=== PATIENT | male | born 1965 | race Caucasian/White ===

== ENCOUNTER → 2017-07-06 | Outpatient (CLI) | payer MEDICARE, MEDICAID ==
[~2017-07-06] MED LIST: ABILIFY5 MG PO; BENICAR40 MG PO; BIOTENE MOIST44.3 ML PO; CELEXA40 MG PO; COZAAR 25MG25 MG/TAB PO; DESYREL 100MG100 MG PO; DILAUDID 2MG TAB2 MG PO; DITROPAN 5MG TAB5 MG PO; FLEXERIL 1010 MG/TAB PO; K-DUR 10 MEQ T10 MEQ PO; LASIX 40MG TABL40 MG PO; LEVAQUIN 5500 MG/TA1 PO; LIORESAL 1010 MG/TAB PO; LIORESAL20 MG; LIORESAL20 MG PO; MEDROL 4MG DOSPA4 MG PO; METOPROLOL50 MG PO; NEURONTIN300 MG/CAP PO; NEURONTIN600 MG/TAB PO; NORCO 325 MG-101 TAB; NORCO 325 MG-101 TAB PO; OXYBUTYNIN5 MG PO; POTASSIUM20 MEQ PO; PRILOSEC 20MG20 MG PO; PRILOTC; REMERON 15M15 MG/TA1 PO; SERTRALINE100 MG PO; TOPAMAX25 M1 PO; TOPAMAX50 MG PO; TOPROL XL100 MG PO; VALIUM 5MG T5 MG/TAB PO; ZOFRAN4 MG PO; ZOLOFT 50MG50 MG PO; ZOLOFT100 MG PO; baclofen pump
== END ==
LOC: WCC 08:40
DX: L97.919 Non-pressure chronic ulcer of unspecified part of right lower leg with unspecified severity (principal); L97.829 Non-pressure chronic ulcer of other part of left lower leg with unspecified severity; I87.2 Venous insufficiency (chronic) (peripheral); I89.0 Lymphedema, not elsewhere classified
CPT/HCPCS: 13919; 18867; 27510; A6197; A6209; G0463

== ENCOUNTER → 2017-07-22 | Outpatient (CLI) | payer MEDICARE | LOC: ZCOL.LAB 15:51 | DX: I83.009 Varicose veins of unspecified lower extremity with ulcer of unspecified site (principal) ==

== ENCOUNTER → 2017-07-22 | Outpatient (CLI) | payer MEDICARE, MEDICAID | LOC: WCC 07-18 09:42 | DX: L97.829 Non-pressure chronic ulcer of other part of left lower leg with unspecified severity (principal); L97.819 Non-pressure chronic ulcer of other part of right lower leg with unspecified severity; I87.2 Venous insufficiency (chronic) (peripheral) | CPT/HCPCS: 13919; G0463 ==

== ENCOUNTER → 2017-07-29 | Outpatient (CLI) | payer MEDICARE | LOC: WCC 08:31 | DX: L97.829 Non-pressure chronic ulcer of other part of left lower leg with unspecified severity (principal); I87.2 Venous insufficiency (chronic) (peripheral); L97.819 Non-pressure chronic ulcer of other part of right lower leg with unspecified severity | CPT/HCPCS: G0463 ==

== ENCOUNTER → 2017-08-12 | Outpatient (CLI) | payer MEDICARE | LOC: WCC 08-11 10:07 | DX: I87.2 Venous insufficiency (chronic) (peripheral) (principal); I89.0 Lymphedema, not elsewhere classified; L89.892 Pressure ulcer of other site, stage 2; L97.819 Non-pressure chronic ulcer of other part of right lower leg with unspecified severity | CPT/HCPCS: 13919; 13973; A6199; G0463 ==

== ENCOUNTER → 2017-08-19 | Outpatient (CLI) | payer MEDICARE | LOC: WCC 09:19 | DX: I89.0 Lymphedema, not elsewhere classified (principal) | CPT/HCPCS: 27513; A6456 ==

== ENCOUNTER 2017-09-14 10:15 | Outpatient (RCR) | payer MEDICARE | END 2017-11-02 | LOC: WSPT | DX: I89.0 Lymphedema, not elsewhere classified (principal) | CPT/HCPCS: G8987-GP; G8988-GP; G8989-GP ==

== ENCOUNTER 2022-12-31 14:56 | Emergency (ER) | payer MEDICARE, MEDICAID ==
[~2022-12-31] VITALS: Ht 160 cm; Wt 132.7 kg
[~2022-12-31 14:56] MED LIST changes: +ALDACTONE50 MG PO; +B-121000 MCG PO; +BUSPAR10 MG PO; +CVS GLUCOSE15 GM PO; +DEMADEX 20MG20 M1 PO; +DEPAKOTE 125MG125 M1 PO; +DITROPAN XL 5MG5 M1 PO; +EUCERIN1 CRE TOP; +FOLIC ACID 40400 MCG PO; +GERI-TUSSI100 MG/5 M PO; +GLUCAGEN HYPOKIT1 MG IM; +GRALISE600 MG PO; +HORIZANT300 MG PO; +HURRICAINE201 MM; +K-DUR20 MEQ PO; +LEVEMIR100 U/ML SQ; +LEXAPRO 10MG10 MG PO; +LIPITOR 10MG10 MG PO; +MAGOX250 PO; +MILK OF MA400 MG/52 PO; +MOBIC15 MG PO; +NOVOLOG 100U100 U/M1 SQ; +PROTONIX 40MG T40 MG PO; +REFRESH TEARS 330 ML OP; +SARNA ANTI-ITC222 ML TP; +TOPAMAX 25MG25 M1 PO; +TRESIBA100 UNIT/1 SQ; +TYLENOL 325MG325 MG PO; +VOLTAREN GEL 1%1 TU TP; +ZYRTEC 10MG10 MG PO
[2022-12-31 15:01] VITALS: TEMP 98.2
[2022-12-31 15:19] LABS: BASO # 0.1 K/mm3 (0.0-0.2); BASO % 0.4 % (0.0-2.0); EOS # 0.3 K/mm3 (0.0-0.7); EOS % 1.6 % (0.0-4.0); GRAN # 11.4 K/mm3 (1.4-6.5); GRAN % 71.5 % (42.2-75.2); HEMATOCRIT 40.6 % (42.0-52.0); HEMOGLOBIN 12.5 g/dl (13.5-18.0); LYMPH # 3.1 K/mm3 (1.2-3.4); LYMPH % 19.1 % (20.0-51.0); MEAN CELL VOLUME 80 fl (80.0-100.0); MEAN CORPUSCULAR HEMOGLOBIN 25 pg (27-31); MEAN CORPUSCULAR HGB CONC 31 g/dl (33.0-37.0); MONO % 6.5 % (1.7-9.3); PLATELET COUNT 279 K/mm3 (130-400); RED BLOOD COUNT 5.05 M/mm3 (4.20-5.60); REDCELL DISTRIBUTION WIDTH-CV 16.2 % (11.5-14.5)
[2022-12-31 15:31] LABS: ALBUMIN 3.7 gm/dL (3.5-5.0); BILIRUBIN,TOTAL 0.7 mg/dL (0.2-1.2); CREATININE, serum 0.89 mg/dL (0.72-1.25); POTASSIUM 4.4 mmol/L (3.5-4.5); TOTAL PROTEIN 8.2 gm/dL (6.2-8.1)
[2022-12-31 19:05] VITALS: BP 147/76; PULSE 98
== END 2022-12-31 19:05 | disposition home or self-care (01) ==
LOC: COL.ER 14:56
PROVIDERS: Internal Medicine Gastroenterology
DX: R07.89 Other chest pain (principal); D72.829 Elevated white blood cell count, unspecified; D64.89 Other specified anemias; E87.8 Other disorders of electrolyte and fluid balance, not elsewhere classified; R79.81 Abnormal blood-gas level; Z28.310 Unvaccinated for COVID-19